=== PATIENT | male | born 1980 | race Caucasian/White ===

== ENCOUNTER 2017-09-28 19:03 | Emergency (ER) | payer SELFPAY ==
[2017-09-28] MEDS ORDERED: I buprofen 600 MG #6 TAB PREPK 600 MG TAB PO ONE (20:52)
[2017-09-28] MEDS ORDERED: PREP PO ONE (20:52)
[2017-09-28] MEDS ORDERED: [UNRECOGNIZED DRUG - OTHER] PO ONE (20:52)
--- NOTE | 2017-09-28 21:07 | ED ---
Throat Pain/Nasal Congestion - HPI Summary HPI Summary: Patient presents with left lower jaw swelling over the past 3 days. Admits he has some poor dentition here believes he has an abscess. Has been trying ibuprofen without relief. Has not tried oral rinses or warm compresses. Does not feel draniage - area is firm. Some pain with opening jaw, chewing. He has not sought medical care prior to today. No previous history of abscess or infection here. He denies fever, chills, difficulty breathing or swallowing, otalgia have a neck pain, stiffness, headache. No PCP, no dentist. - History of Current Complaint Chief Complaint: EDDentalPain Time Seen by Provider: 09/28/17 20:42 Hx Obtained From: Patient - Allergies/Home Medications Allergies/Adverse Reactions: Allergies Allergy/AdvReac Type Severity Reaction Status Date / Time No Known Allergies Allergy Verified 03/27/14 11:33 PMH/Surg Hx/FS Hx/Imm Hx Previously Healthy: Yes Endocrine/Hematology History: Denies: Hx Diabetes, Autoimmune Disease Infectious Disease History: No Infectious Disease History: Denies: Traveled Outside the [place] in Last 30 Days - Family History Known Family History: Positive: None - Social History Occupation: Employed Full-time Lives: With Family Alcohol Use: Occasionally Hx Substance Use: No Substance Use Type: Reports: None Hx Tobacco Use: No Smoking Status (MU): Never Smoked Tobacco Review of Systems Constitutional: Negative Eyes: Negative Positive: Dental Pain. Negative: Sore Throat, Ear Ache, Nasal Discharge Cardiovascular: Negative Respiratory: Negative Gastrointestinal: Negative Positive: no symptoms reported Musculoskeletal: Negative Skin: Negative Neurological: Negative Psychological: Normal All Other Systems Reviewed And Are Negative: Yes Physical Exam Triage Information Reviewed: Yes Vital Signs On Initial Exam: Initial Vitals Temp Pulse Resp BP Pulse Ox 98.7 F 83 20 129/89 98 09/28/17 19:11 09/28/17 19:11 09/28/17 19:11 09/28/17 19:11 09/28/17 19:11 Vital Signs Reviewed: Yes Appearance: Positive: Well-Appearing, Well-Nourished, Pain Distress - mild Skin: Positive: Warm, Skin Color Reflects Adequate Perfusion, Dry - Lt lower jaw /cheek with edema compared to Rt - firm, TTP - no erythema of skin here, no fever to touch Head/Face: Positive: Normal Head/Face Inspection - except for above Eyes: Positive: Normal, EOMI ENT: Positive: Normal ENT inspection, Hearing grossly normal, Pharynx normal. Negative: Nasal congestion, Nasal drainage, Tonsillar swelling, Tonsillar exudate, Trismus, Muffled voice, Hoarse voice Dental: Positive: Gross Decay/Caries @ - multiple, especially in effected area, Abscess @ - gingiva inflammed and firm along gingival root to buccal mucosa along Lt lower jaw - no bogginess, no pustules - tissue w/ mild maceration (pt reports he's been 'chewing it' by accident) Neck: Positive: Supple, Nontender, No Lymphadenopathy Respiratory/Lung Sounds: Positive: Clear to Auscultation, Breath Sounds Present. Negative: Stridor Cardiovascular: Positive: Normal, RRR Musculoskeletal: Positive: Normal, Strength/ROM Intact Neurological: Positive: Normal, Sensory/Motor Intact, Alert, Oriented to Person Place, Time, CN Intact II-III Psychiatric: Positive: Normal Diagnostics - Vital Signs Vital Signs Temp Pulse Resp BP Pulse Ox 09/28/17 19:11 98.7 F 83 20 129/89 98 - Laboratory Lab Statement: Any lab studies that have been ordered have been reviewed, and results considered in the medical decision making process. EENT Course/Dx - Course Course Of Treatment: Abscess vs. celluitis - too firm to I&D - advise conservative care with heat, oral rinses NSAID's and anbx. F/u provided. Danger s/sx if when to return to ED - pt agrees w/ plan. - Diagnoses Provider Diagnoses: Dental infection Discharge - Sign-Out/Discharge Documenting (check all that apply): Discharge/Admit/Transfer - Discharge Plan Condition: Stable Disposition: HOME Prescriptions: Clindamycin HCl 300 mg PO TID #26 capsule Ibuprofen TAB* [Motrin TAB* 600 MG] 600 mg PO Q6H PRN #20 tab PRN Reason: Pain Patient Education Materials: Dental Abscess (ED) Referrals: [facility] [Outside] No Primary Care Phys,NOPCP [Primary Care Provider] - Additional Instructions: Apply heat and rinse with warm salt water multiple times a day to soften tissue , encourage drainage Complete antibiotics as directed and take pain medication as needed for pain/ swelling Follow-up with dentist - see list provided *if you develop fever, chills, headache, neck stiffness, difficulty breathing or swallowing, return to ED - Billing Disposition and Condition Condition: STABLE Disposition: HOME
[2017-09-28 21:17] VITALS: BP 131/97
== END 2017-09-28 21:16 | disposition home or self-care (01) ==
LOC: ED 19:03
DX: K04.7 Periapical abscess without sinus (principal)
CPT/HCPCS: 99282; A9270-GY